=== PATIENT | female | born 1955 | race Caucasian/White ===

== ENCOUNTER 2020-11-05 05:46 | Inpatient (IN) | payer BC ==
[2020-11-03 12:00] VITALS: BMI 28.9
[2020-11-05] MEDS ORDERED: BUPIVACAINE HCL 50 ML ONE ×2 (06:50→08:00)
[2020-11-05] MEDS ORDERED: MIDAZOLAM HCL 2 MG/2 ML SINGLE DOSE VIAL ONE ×3 (06:50→10:48)
[2020-11-05] MEDS ORDERED: BUPIVACAINE LIPOSOME/PF (EXPAREL) 266 MG/20 ML VIAL ONE (06:50)
[2020-11-05] MEDS ORDERED: SODIUM CHLORIDE 0.9% P/F 10 ML VIAL IJ ONE (06:50)
[2020-11-05] MEDS ORDERED: BENZOIN/ALOE VERA/STORAX/TOLU 58 ML BOTTLE ONE (07:26)
[2020-11-05] MEDS ORDERED: SUCCINYLCHOLINE CHLORIDE 200 MG/10 ML SYRINGE ONE (08:02)
[2020-11-05] MEDS ORDERED: PROPOFOL 20 ML ONE ×2 (08:02)
[2020-11-05] MEDS ORDERED: ceFAZolin SODIUM 1 GM VIAL ONE ×2 (08:11→10:36)
[2020-11-05] MEDS ORDERED: VANCOMYCIN 1,000 MG VIAL (RESTRICTED TO ID ONLY) ONE (08:11)
[2020-11-05] MEDS ORDERED: ONDANSETRON 4 MG/2 ML VIAL ONE (08:11)
[2020-11-05] MEDS ORDERED: TRANEXAMIC ACID 1000 MG/10 ML VIAL ONE ×2 (08:11→10:52)
[2020-11-05] MEDS ORDERED: EPHEDRINE SULFATE/0.9% NACL/PF 50 MG/10 ML SYRINGE NR ONE (08:54)
[2020-11-05] MEDS ORDERED: MAGNESIUM HYDROX 2400MG/30ML ORAL SUSPENSION 30 ML CUP PO PRN (11:07)
[2020-11-05] MEDS ORDERED: MAG HYDROX/AL HYDROX/SIMETH 30 ML UNIT-DOSE CUP PO PRN (11:07)
[2020-11-05] MEDS ORDERED: LACTATED RINGERS SOLUTION 1,000 ML IV SCH (11:15)
[2020-11-05] MEDS ORDERED: oxyCODONE HCL 5 MG TABLET PO PRN (11:24)
[2020-11-05] MEDS ORDERED: ACETAMINOPHEN 325 MG TABLET (FP) PO SCH (12:00)
[2020-11-05] MEDS: oxyCODONE HCL 5 MG TABLET PO PRN ×4 (13:48→23:43)
[2020-11-05] MEDS: ACETAMINOPHEN 325 MG TABLET (FP) PO SCH ×2 (13:49→20:47)
[2020-11-05] MEDS: CEFAZOLIN 2 GM/D5W 2 GM/50 ML ML IVPB SCH ×2 (17:49→23:42)
[2020-11-05] MEDS: ONDANSETRON 4 MG/2 ML VIAL IVPUSH PRN (18:55)
[2020-11-05] MEDS: SENNOSIDES/DOCUSATE COMBO (SENNA PLUS) TABLET (UD) PO SCH (21:29)
[2020-11-05] MEDS: CELECOXIB 200 MG CAPSULE PO SCH (21:30)
[2020-11-05] MEDS: ASPIRIN COATED 81 MG TABLET.EC PO SCH (21:30)
[2020-11-05] MEDS: ROSUVASTATIN CA 20 MG TABLET (FP) PO SCH (21:30)
[2020-11-05] MEDS: oxyCODONE HCL 10 MG SUSTAINED ACTING TABLET PO SCH (21:30)
[2020-11-06] MEDS ORDERED: ACETAMINOPHEN 1000 MG/100 ML VIAL (NON FORMULARY) IVPB ONE (01:37)
[2020-11-06] MEDS ORDERED: HYDROmorphone HCl 2 MG/ML VIAL IVPUSH PRN (01:47)
[2020-11-06] MEDS: ONDANSETRON 4 MG/2 ML VIAL IVPUSH PRN ×2 (01:53→08:24)
[2020-11-06] MEDS: ACETAMINOPHEN 325 MG TABLET (FP) PO SCH ×2 (01:57→09:55)
[2020-11-06] MEDS ORDERED: LOCK ITEM NR ONE (02:29)
[2020-11-06] MEDS: CEFAZOLIN 2 GM/D5W 2 GM/50 ML ML IVPB SCH (05:58)
[2020-11-06 08:00] LABS: HEMATOCRIT 36.3 % (32.4-45.2); HEMOGLOBIN 12.2 GM/dl (10.7-15.3); MCH 29.1 pg (25.7-33.7); MCHC 33.7 g/dl (32.0-36.0); MEAN CELL VOLUME 86.4 fl (80-96); PLATELET COUNT 162 10^3/uL (134-434); RDW 13.3 % (11.6-15.6); WHITE BLOOD COUNT 10.5 K/mm3 (4.0-10.8)
[2020-11-06 08:04] LABS: CALCIUM 8.2 mg/dl (8.5-10); CREATININE 0.5 mg/dl (0.55-1.3)
[2020-11-06] MEDS: PANTOPRAZOLE 40 MG TABLET PO SCH (09:56)
[2020-11-06] MEDS: ASPIRIN COATED 81 MG TABLET.EC PO SCH ×2 (09:56→21:11)
[2020-11-06] MEDS: SENNOSIDES/DOCUSATE COMBO (SENNA PLUS) TABLET (UD) PO SCH ×2 (09:56→21:12)
[2020-11-06] MEDS: CELECOXIB 200 MG CAPSULE PO SCH ×2 (09:56→21:12)
[2020-11-06] MEDS ORDERED: SODIUM CHLORIDE 1,000 ML IV SCH (10:15)
[2020-11-06] MEDS ORDERED: DEXAMETHASONE SOD PHOSPHATE 4 MG/1 ML VIAL IVPUSH PRN (10:21)
[2020-11-06] MEDS ORDERED: KETOROLAC TROMETHAMINE 30 MG/1 ML VIAL IVPUSH PRN (10:21)
[2020-11-06] MEDS: oxyCODONE HCL 10 MG SUSTAINED ACTING TABLET PO SCH (11:26)
[2020-11-06 14:56] LABS: CALCIUM 8.6 mg/dl (8.5-10); CREATININE 0.6 mg/dl (0.55-1.3)
[2020-11-06] MEDS: ACETAMINOPHEN 1000 MG/100 ML VIAL (NON FORMULARY) IVPB PRN (21:10)
[2020-11-06] MEDS: ROSUVASTATIN CA 20 MG TABLET (FP) PO SCH (21:12)
[2020-11-07 08:00] LABS: MCH 29.1 pg (25.7-33.7); MCHC 33.4 g/dl (32.0-36.0); MEAN CELL VOLUME 87.1 fl (80-96); MEAN PLT VOLUME 10.6 fl (7.5-11.1); PLATELET COUNT 164 10^3/uL (134-434); RDW 12.9 % (11.6-15.6); WHITE BLOOD COUNT 10.6 K/mm3 (4.0-10.8)
[2020-11-07 08:09] LABS: CALCIUM 8.6 mg/dl (8.5-10); CREATININE 0.4 mg/dl (0.55-1.3)
[2020-11-07] MEDS: ACETAMINOPHEN 1000 MG/100 ML VIAL (NON FORMULARY) IVPB PRN (09:12)
[2020-11-07] MEDS: ASPIRIN COATED 81 MG TABLET.EC PO SCH (09:13)
[2020-11-07] MEDS: PANTOPRAZOLE 40 MG TABLET PO SCH (09:13)
[2020-11-07] MEDS: SENNOSIDES/DOCUSATE COMBO (SENNA PLUS) TABLET (UD) PO SCH (09:13)
[2020-11-07] MEDS: CELECOXIB 200 MG CAPSULE PO SCH (09:13)
[2020-11-07 14:33] VITALS: BP 107/58; PULSE 77; TEMP 98.8
== END 2020-11-07 16:16 | disposition home or self-care (01) | DRG 470 ==
LOC: FM/S 05:46
PROVIDERS: ADMIT Orthopaedic Surgery Adult Reconstructive Orthopaedic Surgery; ATTEND Orthopaedic Surgery Adult Reconstructive Orthopaedic Surgery
PROC: 0SRC0J9 Replacement of Right Knee Joint with Synthetic Substitute, Cemented, Open Approach (ICD-10-PCS; principal; 2020-11-05 08:42)
DX: M17.11 Unilateral primary osteoarthritis, right knee (principal); E87.1 Hypo-osmolality and hyponatremia; E78.5 Hyperlipidemia, unspecified
CPT/HCPCS: 36415; 73560-TC-RT-FY; 80048; 85027; 88305-TC; 88311-TC; 94760; 97010-GP; 97116-GP; 97161-GP; J0131